=== PATIENT | male | born 1945 | race Caucasian/White ===

== ENCOUNTER → 2023-12-24 09:33 | Outpatient (REF) | payer MEDICARE, BC, SELFPAY | LOC: DHCBS MAIN 09:33 | PROVIDERS: ATTENDING PHYSICIAN Nuclear Medicine Nuclear Cardiology; FAMILY PHYSICIAN Family Medicine | DX: I48.0 Paroxysmal atrial fibrillation (principal); I34.0 Nonrheumatic mitral (valve) insufficiency; I25.10 Atherosclerotic heart disease of native coronary artery without angina pectoris | CPT/HCPCS: 93306 ==

== ENCOUNTER → 2024-01-25 07:22 | Outpatient (REF) | payer MEDICARE, BC, SELFPAY ==
[2024-01-25 08:07] LABS: Hematocrit 38.5 % (39.0-52.0); Hemoglobin 12.4 g/dL (13.0-18.0)
[2024-01-25 08:42] LABS: Protein/creatinine Ratio 0.1; Urine Protein 15 mg/dl
[2024-01-25 09:14] LABS: Albumin 3.8 g/dl (3.5-5.0); Blood Urea Nitrogen 27 mg/dl (9-20); Calcium 9.2 mg/dl (8.4-10.2); Carbon Dioxide 23 mmol/L (22-30); Chloride 110 mmol/L (98-107); Glucose 77 mg/dl (70-99); Phosphorus 4.3 mg/dl (2.5-4.5); Sodium 137 mmol/L (135-145); eGFR 37.82
[2024-01-25 09:26] LABS: Intact PTH 260.4 pg/ml (13.6-85.8)
== END ==
LOC: REG 07:22
PROVIDERS: ATTENDING PHYSICIAN Specialist
DX: N18.32 Chronic kidney disease, stage 3b (principal)
CPT/HCPCS: 36415; 80069; 82570; 83970; 84156; 85014; 85018

== ENCOUNTER 2024-03-13 21:15 | Inpatient (IN) | payer MEDICARE, BC, SELFPAY ==
[2024-03-13] VITALS (19 sets, daily range): BP systolic 145–197; BP diastolic 59–129; BMI 25.3; BMI 25.0
[2024-03-13 18:13] LABS: % Basophils 0.2 % (0-2); % Eosinophils 0.3 % (0-6); % Immature Granulocytes 0.4 % (0-0.5); % Lymphocytes 8.4 % (20.5-51.1); % Monocytes 7.5 % (1.7-9.3); % Neutrophils 83.2 % (42.2-75.2); Absolute Lymphocytes 0.9 10^3/uL (1.2-3.4); Absolute Monocytes 0.8 10^3/uL (0.1-0.6); Absolute Neutrophils 8.7 10^3/uL (1.4-6.5); Hematocrit 37.5 % (39.0-52.0); Hemoglobin 12.8 g/dL (13.0-18.0); Mean Corp Hgb Conc. 34.1 g/dL (33.0-37.0); Mean Corpuscular Volume 96.6 fL (80.0-94.0); Mean Platelet Volume 10.3 fL (7.4-10.4); Nucleated Red Blood Cells % 0 % (-); Platelet Count 210 10^3/uL (130-400); Red Blood Cell Count 3.88 10^6/uL (4.70-6.10); Red Cell Dist. Width 14.8 % (11.5-14.5); White Blood Cell Count 10.4 10^3/uL (4.8-10.8)
[2024-03-13 18:14] LABS: Glucose - Point of Care 30 mg/dl (70-99)
[2024-03-13] MEDS: DEXTROSE 50% SYRINGE 25 GRAMS IV ×2 (18:20→20:11)
--- NOTE | 2024-03-13 18:32 | ED.GENMED ---
History of Present Illness
General
Chief Complaint: Blood Sugar Problem
Source: patient, family and ambulance crew
Exam Limitations: none
Time Seen by Provider: 03/13/24 18:17
Nursing documentation reviewed up to this point in time: agreed with
Travel History
Have you had any contact with someone who has COVID-19?: No
Do you have any symptoms of coronavirus? Fever > 100 degrees, chills, cough, shortness of breath, sore throat, loss of taste or smell, muscle aches, or headache?: No
History of Present Illness
History of Present Illness:
78-year-old male presents emergency department due to low blood sugar. Blood sugar was in the 40s upon EMS arrival. EMS gave D10 en route, and blood sugar xochitl to 192. He has had low blood sugar in the past, that was thought to be secondary to
taking the wrong medication. He also has a mass on his pancreas. states he has not taken any of her medications.
Past History
Past History
ED Past Medical History: CAD and Other (Deaf Left ear)
ED Past Surgical History: Cardiac (Stents x 2) and Other (Ear tubes Bilaerally)
Social History
Tobacco: Non-smoker
Alcohol: Occasional
Personal:
Living: with family
Review of Systems
Review of Systems
Allergies reviewed?: Yes
All Other Systems: Not applicable
Constitutional: Reports fatigue
EENT: Reports no symptoms
Respiratory: Reports no symptoms
Cardiac: Reports syncope
ABD/GI: Reports no symptoms
: Reports no symptoms
Musculoskeletal: Reports no symptoms
Skin: Reports no symptoms
Neurological: Reports no symptoms
Endocrine: Reports no symptoms
Hematologic/Lymphatic: Reports no symptoms
Psychiatric: Reports no symptoms
Phy Exam
Physical Exam
Physical Exam:
Physical Exam
General: Fatigued, afebrile
Neck: supple. no meningeal signs. normal posterior pharynx
Heart: s1/s2 regular rate and rhythm, no murmur. equal radial
pulses.
HEENT: Pupils equal round reactive to light, EOMI
Lungs: no acute respiratory distress. clear bilaterally
Abdomen: normal bowel sounds. not tender. no CVAT
Neuro: alert and oriented. no focal neurological deficits cranial nerves II through XII intact
Skin: no rash
Psychiatric: well kept. interactive and cooperative
Extremities: no edema. no calf tenderness. negative homans. good distal pulses
Course
Orders/Labs/Results
Orders:
Orders
03/13/24 18:08
CBC/With Diff [Complete Blood Count/With Diff] Urgent
CMP [Comprehensive Metabolic Panel] Urgent
03/13/24 18:17
Dextrose 50%-Water [Dextrose 50% Syringe] 25 grams IV NOW STA
03/13/24 18:23
Dextrose 50%-Water [Dextrose 50% Syringe] 25 grams .ROUTE .STK-MED ONE
Abnormal Lab Results
03/13/24 03/13/24
18:08 18:13
RBC 3.88 L 10^6/uL
(4.70-6.10)
Hgb 12.8 L g/dL
(13.0-18.0)
Hct 37.5 L %
(39.0-52.0)
MCV 96.6 H fL
(80.0-94.0)
MCH 33.0 H pg
(27.0-31.0)
RDW 14.8 H %
(11.5-14.5)
Absolute Neuts (auto) 8.7 H 10^3/uL
(1.4-6.5)
Absolute Lymphs (auto) 0.9 L 10^3/uL
(1.2-3.4)
Absolute Monos (auto) 0.8 H 10^3/uL
(0.1-0.6)
Neutrophils % 83.2 H %
(42.2-75.2)
Lymphocytes % 8.4 L %
(20.5-51.1)
POC Glucose 30 L* mg/dl
(70-99)
03/13/24 18:08
Vital Signs
Initial and Last Documented VS:
Initial Vital Signs
Temp Pulse BP Pulse Ox
97.7 F 63 171/80 99
03/13/24 17:58 03/13/24 17:58 03/13/24 17:58 03/13/24 17:58
Last Documented Vital Signs
Temp Pulse BP Pulse Ox
97.7 F 63 197/87 98
03/13/24 17:58 03/13/24 17:58 03/13/24 18:15 03/13/24 18:15
MDM/Problems Addressed
Differential Diagnosis Includes:
Insulinoma, medication ingestion
MDM/Problems Addressed:
78-year-old male with hypoglycemia, unclear etiology. Recurrent. Will admit to hospitalist.
Chronic conditions affecting care: Kidney disease
Acute Exacerbation and/or Progression of Chronic Illness: Kidney disease
*Pulse Oximetry
Patient hypoxic: no
*EKG
Interpreted by ED Provider?: NA
*Porcelain Turner Interpretation
Rate: normal
Interpretation: normal
Heart Rate: 95
Rhythm: sinus
*Critical Care Note
Total Time (30-74mins, 75-104mins- exclusive of procedures): 30
comment:
Critical care statement: A total of 30 minutes of critical care time was provided for this patient. This includes management of unstable vital signs, evaluation of the patient at bedside, reviewing the patient's pertinent medical records, discussion
with consultants, review of old EKGs and review of pertinent medical records. This time with separate from time utilized to perform the aforementioned documented procedures
Data Reviewed
Review of Other/Old Records Reveals: Radiology Studies (Prior MRI shows simple cysts in right kidney, complex cyst left kidney, nonenhancing cyst in pancreas, 06/02/2023)
Source: records
Patient Management
Social determinants of health affecting care: Living situation
Discussion with other providers: Hospitalist
Escalation/DeEscalation of care consider admission/obs:
Admit indicated
ED Attending Note
-
Portions of this chart may have been created with voice recognition software.� Occasional wrong word or��sound alike� substitutions may have occurred due to the inherent limitations of voice recognition software.
Discharge Plan
Departure
Prescriptions:
No Action
allopurinol 100 mg tablet
150 mg PO DAILY
simvastatin 40 mg tablet
40 mg PO DAILY
colchicine 0.6 mg tablet
0.6 mg PO WESA
Eliquis 2.5 mg tablet
2.5 mg PO BID
sodium bicarbonate 650 mg tablet
1,300 mg PO BID Qty: 120 1RF
Interventions
Interventions:
*ED COVID-19 Vaccine History Last Done: 03/13/24 18:18
Discharge Date and Time
Print Language: IRISH
[2024-03-13 18:38] LABS: Glucose - Point of Care 184 mg/dl (70-99)
[2024-03-13 19:32] LABS: ALT (SGPT) 33 U/L (0-50); AST (SGOT) 38 U/L (17-59); Albumin 3.6 g/dl (3.5-5.0); Alkaline Phosphatase 94 U/L (38-126); Blood Urea Nitrogen 36 mg/dl (9-20); Calcium 9.1 mg/dl (8.4-10.2); Carbon Dioxide 17 mmol/L (22-30); Chloride 113 mmol/L (98-107); Estimated Creatinine Clearance 33 ml/min; Glucose < 30 mg/dl (70-99); Potassium 3.8 mmol/L (3.5-5.1); Sodium 139 mmol/L (135-145); Total Bilirubin 0.7 mg/dl (0.2-1.3); Total Protein 5.9 g/dl (6.3-8.2)
[2024-03-13 20:06] LABS: Glucose - Point of Care 53 mg/dl (70-99)
[2024-03-13] MEDS: D5/0.9% SODIUM CHLORIDE 1000 IV (20:21)
--- NOTE | 2024-03-13 20:31 | HPS.HSE ---
Family Physician
-
Family Physician: Edilson Salgado
Chief Complaint
-
low blood sugar
History of Present Illness
78 y/o M, hx of CAD, PAF on Eliquis, Gout, cognitive impairment, CKD 3b presents to ER with low blood sugar. Family noted patient to be more sleepy similar to episode in August and found blood sugar in 40s. EMS was called and they gave D10 in
route (response to 192). In ER, he arrived with blood sugar of 30 and given amp + food/juice/crackers with response to 184, then came down to 53. Additional 1 amp and IVF with dextrose started. Patient was more alert.
Patient is not on hypoglycemic meds.
and daughter at bedside. states she arranges their med bottles and she is insulin+sulfonylureas and reports she doesn't think meds were mixed up.
Patient has a pancreatic cyst which is scheduled for follow up imaging (MRI) in May.
Patient was admitted in August for similar, requiring IMU and D5/D10 drip. NO etiology was found and patient left AMA.
Medical History
Past Medical History
Past Medical History: Reports Other (CAD, PAF on Eliquis, Gout, cognitive impairment, CKD 3b)
Past Surgical History: Reports Other (Cardiac (Stents x 2) and Other (Ear tubes Bilaerally))
Social History
Tobacco: Non-smoker
Alcohol: Occasional
Personal:
Living: With Family
Family History
Family History: Not pertinent
Allergies / Home Medications
Allergies reflects when Allergies were last updated in [facility].
Home Medications with original date entered in [facility]
Allergy/Medication List:
Allergies
Allergy/AdvReac Type Severity Reaction Status Date / Time
No Known Allergies Allergy Verified 05/11/23 03:44
Home Medications
allopurinol 300 mg tablet 300 mg PO DAILY 03/13/24
apixaban 2.5 mg tablet (Eliquis) 2.5 mg PO BID 03/13/24
aspirin 81 mg tablet,delayed release 81 mg PO DAILY 03/13/24
carvedilol 25 mg tablet 25 mg PO BID 03/13/24
cetirizine 10 mg tablet (Zyrtec) 10 mg PO DAILY 03/13/24
cholecalciferol (vitamin D3) 125 mcg (5,000 unit) tablet 125 mcg PO DAILY 03/13/24
colchicine 0.6 mg tablet 0.6 mg PO WEFR@0800 03/13/24
cyanocobalamin (vitamin B-12) 1,000 mcg tablet 1,000 mcg PO DAILY 03/13/24
lisinopril 40 mg tablet 40 mg PO DAILY 03/13/24
simvastatin 40 mg tablet 40 mg PO HS 03/13/24
sodium bicarbonate 650 mg tablet 650 mg PO BID 03/13/24
zinc 50 mg tablet 50 mg PO DAILY 03/13/24
Review of Systems
-
A 12 point ROS was completed and negative except as noted: Yes
Physical Exam
Vital Signs
Vital Signs
Temp Pulse Resp BP Pulse Ox
97.7 F 60 10 148/59 98
03/13/24 17:58 03/13/24 20:15 03/13/24 20:15 03/13/24 20:15 03/13/24 20:15
Physical Exam
General: No Apparent Distress
HEENT: NormoCephalic and Anicteric
Respiratory: Clear; No Wheezes or Rales
Cardiac: S1/S2 and Regular Rhythm
Neuro: AO x 3
Hematologic/Lymphatic: No Lymphadenopathy
Psych: Calm
Laboratory Results
-
03/13/24 18:08
03/13/24 18:08
Laboratory Results
Total Bilirubin 0.7 mg/dl (0.2-1.3) 03/13/24 18:08
AST 38 U/L (17-59) 03/13/24 18:08
ALT 33 U/L (0-50) 03/13/24 18:08
Alkaline Phosphatase 94 U/L (38-126) 03/13/24 18:08
Data Reviewed
-
Lab Data: Labs Reviewed by me
Impression/Plan
-
Assessment:
Acute hypoglycemia, recurrent
- classic Whipple's triad of symptomatic, lab verified hypoglycemia in which symptoms resolves with increased glucose levels
- Etiology could be exogenous hypoglycemia agents (medication mix up with diabetic family member) vs adrenal insufficiency vs endogenous hyperinsulinemic states (malignancy, tumors) vs other (infection, other drugs, malnutrition states etc)
- Family reports patients appetite is excellent. He has not gone any weight loss surgeries. No reported infectious symptoms.
- they deny any mix up medications although I have asked Daughter to double check pill bottle counts and pill organizer.
- of note, CKD is contributing factor but not true etiology of hypoglycemia
- patients blood glucose 53 now - therefore ordered stat insulin, cortisol, C-peptide, IGF, B-HB obtained within 5 mins to improve accuracy. Up-to-date recommends proinsulin level and sulfonylurea screen but these labs are not available.
- known pancreatic lesion on MRI 05/2023: 6 mm nonenhancing cyst in the body of the pancreas. This likely represents a simple cyst, dilated side branch or IPMN
- repeat MRI Abdomen here to evaluate for any progression. Family does reports some transient weight loss.
- Admit IMU. Continue D5 fluids; low threshold for D10 fluids if patient remains hypoglycemia. Q1h glucose checks ordered. Keep dextrose at the bedside.
CAD
PAF on Eliquis
Essential HTN
HLD
- continue ASA/Eliquis
- continue Coreg/NERI
- continue statin
Gout
- continue Allopurinol and Colchicine
hx of cognitive impairment
CKD 3b
Chronic metabolic acidosis
- continue sodium bicarbonate
- scheduled to see Nephrology in May.
DVT ppx: Eliquis
Code: Full
[2024-03-13 20:57] LABS: B-Hydroxybutyrate 0.05 mmol/L (0.02-0.27)
[2024-03-13 21:38] LABS: Glucose - Point of Care 58 mg/dl (70-99)
[2024-03-13 22:27] LABS: Cortisol, Random 23.4 ug/dl
[2024-03-13 22:43] LABS: Glucose - Point of Care 50 mg/dl (70-99)
[2024-03-13 22:58] LABS: Glucose - Point of Care 50 mg/dl (70-99)
[2024-03-13] MEDS: DEXTROSE 50% SYRINGE 12.5 GRAMS IV (23:04)
[2024-03-13 23:13] LABS: Glucose - Point of Care 41 mg/dl (70-99)
[2024-03-13] MEDS: D10W 1000 IV (23:14)
[2024-03-13] MEDS: SODIUM BICARBONATE 650 MG PO (23:21)
[2024-03-13] MEDS: LIPITOR 20 MG PO (23:21)
[2024-03-13 23:27] LABS: Glucose - Point of Care 102 mg/dl (70-99)
[2024-03-14] VITALS (15 sets, daily range): BP systolic 104–179; BP diastolic 60–85; PULSE 68–72; BMI 25.1
[2024-03-14] MEDS: DEXTROSE 50% SYRINGE 12.5 GRAMS IV ×2 (00:21→01:50)
[2024-03-14 00:29] LABS: Glucose - Point of Care 55 mg/dl (70-99)
[2024-03-14 00:53] LABS: Glucose - Point of Care 80 mg/dl (70-99)
[2024-03-14 01:54] LABS: Glucose - Point of Care 48 mg/dl (70-99)
[2024-03-14 02:22] LABS: Glucose - Point of Care 115 mg/dl (70-99)
[2024-03-14] MEDS: DEXTROSE 50% SYRINGE 25 GRAMS IV ×4 (03:19→17:18)
[2024-03-14 03:24] LABS: Glucose - Point of Care 40 mg/dl (70-99)
[2024-03-14 03:46] LABS: Glucose - Point of Care 115 mg/dl (70-99)
[2024-03-14] MEDS: GlucaGen 1 MG IM (04:35)
[2024-03-14 04:40] LABS: Glucose - Point of Care 45 mg/dl (70-99)
[2024-03-14 05:09] LABS: Glucose - Point of Care 69 mg/dl (70-99)
[2024-03-14 05:22] LABS: Hematocrit 35.2 % (39.0-52.0); Mean Corp Hgb Conc. 34.1 g/dL (33.0-37.0); Mean Corpuscular Hgb 33.7 pg (27.0-31.0); Mean Corpuscular Volume 98.9 fL (80.0-94.0); Platelet Count 183 10^3/uL (130-400); Red Blood Cell Count 3.56 10^6/uL (4.70-6.10); Red Cell Dist. Width 14.6 % (11.5-14.5); White Blood Cell Count 10.9 10^3/uL (4.8-10.8)
[2024-03-14 05:34] LABS: Glucose - Point of Care 158 mg/dl (70-99)
[2024-03-14 05:35] LABS: Blood Urea Nitrogen 31 mg/dl (9-20); Calcium 8.8 mg/dl (8.4-10.2); Carbon Dioxide 17 mmol/L (22-30); Chloride 111 mmol/L (98-107); Estimated Creatinine Clearance 37 ml/min; Glucose 41 mg/dl (70-99); Potassium 4.4 mmol/L (3.5-5.1); Sodium 135 mmol/L (135-145); eGFR 47.06
[2024-03-14 06:03] LABS: Cortisol, Random 11.1 ug/dl
--- NOTE | 2024-03-14 06:06 | W.PN.HOSP.TC ---
Addendum entered and electronically signed by Alpesh Taylor MD 03/14/24 17:32:
Became hypoglycemic again later in day 40s. D10W increased back to 125 cc/h. FS recently reduced to ACHS increased to Q2H
Original Note:
Today's Communication/Plan
-
cont IVF dextrose eventual reduce rate as hypoglycemia persistently improves/resolves
increased bicarb supplementation
Reduce FS from Q1h to ACHS
Eliquis increased to 5 mg BID
Follow up MRI
Assessment / Plan
Assessment / Plan
Physical Exam
General: No Apparent Distress
HEENT: NormoCephalic and Anicteric
Respiratory: Clear; No Wheezes or Rales
Cardiac: S1/S2 and Regular Rhythm
Abd: soft bowel sounds present nontender
Neuro: AO x 3
Psych: Calm
HPI: 78M hx of CAD, PAF on Eliquis, Gout, cognitive impairment, CKD 3b presents to ER with low blood sugar. Family noted patient to be more sleepy similar to episode in August and found blood sugar in 40s. Admitted to IMU on Dextrose IVF
requiring frequent prn glucagon dextrose IVP's first 24 hours, gradually improved.
Acute hypoglycemia, recurrent
- Etiology could be exogenous hypoglycemia agents (medication mix up with diabetic family member) vs adrenal insufficiency (less likely cortisol non-deficient) vs endogenous hyperinsulinemic states (malignancy, tumors) vs other (infection, other
drugs, malnutrition states etc)
- Family reports patients appetite is excellent. Denies weight loss surgeries. No obvious signs of infection afebrile mild leukocytosis 10.9 non-significant
- CKD likely contributing however primary etiology remains unclear
- pending insulin, C-peptide, IGF.
- B-HB wnl
- known pancreatic lesion on MRI 05/2023: 6 mm nonenhancing cyst in the body of the pancreas. This likely represents a simple cyst, dilated side branch or IPMN
- repeat MRI Abd for possible progression pending. Family does reports some transient weight loss.
-IMU admit. Continue D10 fluid, prn dextrose, prn glucagon
-03/14 sugars improving, consistently euglycemic, freq FS reduced to ACHS from Q hourly
CAD
PAF on Eliquis
Essential HTN
HLD
- continue ASA/Eliquis (home 2.5 mg BID increased to 5 mg given age and weight- does not need renal dosing at this time, possible switch back to renal dosing upcoming 79th birthday in May if Cr>=1.5 or Wt <=60kg)
- continue Coreg/NERI
- continue statin
Gout
- continue Allopurinol and Colchicine
hx of cognitive impairment
CKD 3b
Chronic metabolic acidosis
- continue sodium bicarbonate increased to TID
- scheduled to see Nephrology in May.
PT/OT appreciated Home Health services
DVT ppx: Eliquis
Code: Full
Discussed with patient at bedside. called to provide update, no answer received, message left with call back number.
I spent a total of 50 minutes with the patient or on the floor. More than 50% of this time involved counseling and coordination of care.
Anticipated Discharge: 24 - 48 hours
Subjective/Interval History
-
Date of Service: March 14, 2024
Seen and examined at bedside in no acute distress resting comfortably in bed. Reports overall feeling well. Denies new acute issues including lightheadedness dizziness.
Objective Data
-
Labs:
Laboratory Results
03/13/24 03/14/24
18:08 04:58
WBC 10.4 Pending
Hgb 12.8 L Pending
Hct 37.5 L Pending
Plt Count 210 Pending
Sodium 139 135
Potassium 3.8 4.4
Chloride 113 H 111 H
Carbon Dioxide 17 L 17 L
BUN 36 H 31 H
Creatinine 1.7 H 1.5 H
Glucose < 30 L* 41 L*
Calcium 9.1 8.8
Total Bilirubin 0.7
AST 38
ALT 33
Alkaline Phosphatase 94
Vital Signs:
Vital Signs
Temp Pulse Resp BP Pulse Ox
97.9 F 62 18 139/79 98
03/14/24 04:00 03/14/24 05:00 03/14/24 05:00 03/14/24 04:00 03/14/24 05:00
I&O
03/12/24 03/13/24 03/14/24
06:59 06:59 06:59
Output Total 525 / 525
Balance -525 / -525
--- NOTE | 2024-03-14 06:16 | PTCARENOTE ---
Pt maintained on Q1 Accu checks throughout the night. Pt currently receiving D10 @125 ml/hr. Please refer to hypoglycemic intervention documentation for recall of all hourly interventions done in response to low sugars. pt remains asymptomatic, does
c/o tiredness, AAO.
[2024-03-14] MEDS: D10W 1000 IV ×2 (06:28→14:48)
[2024-03-14 06:33] LABS: Glucose - Point of Care 81 mg/dl (70-99)
[2024-03-14] MEDS: ZESTRIL 40 MG PO (07:37)
[2024-03-14] MEDS: COREG 25 MG PO ×2 (07:37→20:01)
[2024-03-14] MEDS: ZYLOPRIM 300 MG PO (07:37)
[2024-03-14] MEDS: ELIQUIS 2.5 MG PO (07:44)
[2024-03-14] MEDS: VITAMIN B-12 1000 MCG PO (07:44)
[2024-03-14] MEDS: ASPIR LOW (ENTERIC COATED) 81 MG PO (07:44)
[2024-03-14] MEDS: SODIUM BICARBONATE 650 MG PO ×3 (07:45→21:18)
[2024-03-14] MEDS: ZYRTEC 10 MG PO (07:45)
[2024-03-14] MEDS: VITAMIN D3 (cholecalciferol) 125 MCG PO (07:45)
[2024-03-14 07:46] LABS: Glucose - Point of Care 47 mg/dl (70-99)
[2024-03-14 08:02] LABS: Glucose - Point of Care 96 mg/dl (70-99)
[2024-03-14 08:19] LABS: Urine Albumin Negative (Neg - Trace); Urine Bilirubin Negative (Negative); Urine Character Clear (Clear); Urine Color Straw; Urine Glucose Negative (Negative); Urine Ketone Negative (Negative); Urine Leukocyte Negative (Negative); Urine Nitrite Negative (Negative); Urine Occult Blood Negative (Negative); Urine Specific Gravity 1.005 (<1.030); Urine Urobilinogen Negative (Neg - 1+)
[2024-03-14 09:05] LABS: Glucose - Point of Care 96 mg/dl (70-99)
[2024-03-14 09:41] LABS: Glycohemoglobin (HgbA1c) 5.1 % (4.0-5.6)
[2024-03-14] MEDS: D10W IV (10:16)
[2024-03-14 10:17] LABS: Glucose - Point of Care 116 mg/dl (70-99)
[2024-03-14 11:17] LABS: Glucose - Point of Care 84 mg/dl (70-99)
[2024-03-14 12:34] LABS: Glucose - Point of Care 76 mg/dl (70-99)
[2024-03-14 14:03] LABS: Glucose - Point of Care 83 mg/dl (70-99)
[2024-03-14 15:37] LABS: Glucose - Point of Care 83 mg/dl (70-99)
[2024-03-14 16:49] LABS: Glucose - Point of Care 70 mg/dl (70-99)
--- NOTE | 2024-03-14 16:56 | PTCARENOTE ---
Addendum entered by Moon Dozier RN 03/14/24 17:09:
MRI requires fasting x4 hours-- to be done in am set up tentatively for 9am.
Original Note:
AAOx3 pleasant appropriate- IVF D10 @125ml/hr infusing all day- Assisted with meal ordering, poor appetite but ate all of breakfast and lunch maintaining appropriate glucose levels- however currently 70 asymptomatic and assisted again with dinner
ordering.
IN/ Out of bed all day- did not sleep all night so dosed off a few times. SR on tele, BP 140/78. Chair alarm on for safety. and daughter visiting.
[2024-03-14 17:22] LABS: Glucose - Point of Care 40 mg/dl (70-99)
--- NOTE | 2024-03-14 18:02 | PTCARENOTE ---
Accu check read 70 and with in 1/2 hour noticed lethagic/ pale accu check retaken read 40- IV D50 1/2 am given per protocol- responded immediately- recheck was 93. Dinner here and eating, appetite poor. IVF maintained D10 at 125ml/hr. D/w
Dr. Taylor.
[2024-03-14 18:03] LABS: Glucose - Point of Care 93 mg/dl (70-99)
[2024-03-14] MEDS: ELIQUIS 5 MG PO (20:00)
[2024-03-14 20:06] LABS: Glucose - Point of Care 144 mg/dl (70-99)
--- NOTE | 2024-03-14 20:07 | PTCARENOTE ---
Care assumed of pt from day shift RN. Pt AAO, family at bedside visiting. Pt maintained at Q2hr accu checks. 19:50 check 144, D10 remains at 125 ml/hr. recheck at 21:50. no hypoglycemia additional intervention needed at this time. Pt remains lightly
flushed at the cheeks. no assessment changes. Pt took pm meds with water. NSR on monitor. OOB x 1 to the bathroom. voiding yellow moderate amount of urine. expresses no needs at this time. call parks in reach.
[2024-03-14] MEDS: LIPITOR 20 MG PO (21:18)
[2024-03-14 22:11] LABS: Glucose - Point of Care 166 mg/dl (70-99)
--- NOTE | 2024-03-14 22:50 | PTCARENOTE ---
Pt remains on D10@125 ml/hr, Q2 Accu checks maintained. Pm accu checks, 19:50 @ 144 and 22:00 @ 166. TONGUE LINING STITCHER notified of increase in sugars. Due to Pts recent fluctuation in sugars, benign hypoglycemia and inability to maintain normal sugars without
intervention. TONGUE LINING STITCHER instructed RN to continue with D10.
[2024-03-15] VITALS (15 sets, daily range): BP systolic 109–154; BP diastolic 48–82; PULSE 66; BMI 24.8
[2024-03-15 00:30] LABS: Glucose - Point of Care 179 mg/dl (70-99)
[2024-03-15] MEDS: D10W 1000 IV (00:33)
[2024-03-15 02:01] LABS: Glucose - Point of Care 176 mg/dl (70-99)
[2024-03-15 04:23] LABS: Glucose - Point of Care 187 mg/dl (70-99)
[2024-03-15 04:25] LABS: Hematocrit 34.8 % (39.0-52.0); Hemoglobin 11.8 g/dL (13.0-18.0); Mean Corp Hgb Conc. 33.9 g/dL (33.0-37.0); Mean Corpuscular Hgb 33.4 pg (27.0-31.0); Mean Corpuscular Volume 98.6 fL (80.0-94.0); Mean Platelet Volume 10.7 fL (7.4-10.4); Platelet Count 150 10^3/uL (130-400); Red Blood Cell Count 3.53 10^6/uL (4.70-6.10); Red Cell Dist. Width 14.8 % (11.5-14.5); White Blood Cell Count 7.4 10^3/uL (4.8-10.8)
[2024-03-15 05:12] LABS: Blood Urea Nitrogen 25 mg/dl (9-20); Calcium 8.9 mg/dl (8.4-10.2); Carbon Dioxide 18 mmol/L (22-30); Chloride 111 mmol/L (98-107); Estimated Creatinine Clearance 37 ml/min; Glucose 171 mg/dl (70-99); Magnesium 1.8 mg/dl (1.6-2.3); Phosphorus 3.2 mg/dl (2.5-4.5); Potassium 4.7 mmol/L (3.5-5.1); Sodium 133 mmol/L (135-145); eGFR 47.06
[2024-03-15 06:01] LABS: Glucose - Point of Care 211 mg/dl (70-99)
--- NOTE | 2024-03-15 07:54 | W.PN.HOSP.TC ---
Today's Communication/Plan
-
Stop IVF dextrose, repeat FS in 1 hr off fluids, if remains euglycemic decrease frequency FS to ACHS, if hypoglycemic resume IVF dextrose and cont with FS Q3H
PT/OT
discharge planning home with home services
Fingerstick monitoring education and device to be provided
Assessment / Plan
Assessment / Plan
Physical Exam
General: No Apparent Distress
HEENT: NormoCephalic and Anicteric hard of hearing
Respiratory: Clear; No Wheezes or Rales
Cardiac: S1/S2 and Regular Rhythm
Abd: soft bowel sounds present nontender
Neuro: AO x 3
Psych: Calm
HPI: 78M hx of CAD, PAF on Eliquis, Gout, cognitive impairment, CKD 3b presents to ER with low blood sugar. Family noted patient to be more sleepy similar to episode in August and found blood sugar in 40s. Admitted to IMU on Dextrose IVF
requiring frequent prn glucagon dextrose IVP's first 24 hours, gradually improved.
Acute hypoglycemia, recurrent
- Etiology could be exogenous hypoglycemia agents (medication mix up with diabetic family member) vs adrenal insufficiency (less likely cortisol non-deficient) vs endogenous hyperinsulinemic states (malignancy, tumors) vs other (infection, other
drugs, malnutrition states etc)
- Family reports patients appetite is excellent. Denies weight loss surgeries. No obvious signs of infection afebrile mild leukocytosis 10.9 non-significant
- CKD likely contributing however primary etiology remains unclear
- pending insulin, C-peptide, IGF.
- B-HB wnl
- known pancreatic lesion on MRI 05/2023: 6 mm nonenhancing cyst in the body of the pancreas. This likely represents a simple cyst, dilated side branch or IPMN
- MR abd appreciated stable findings left renal complex cyst slightly increased from prior and stable pancreatic cystic lesion 2 yr follow up MRI/MRCP w/ contrast in 2 years recommended
-IMU admit.
-prn dextrose, prn glucagon
-sugars improving, consistently euglycemic, occasional mild hyperglycemia noted, D10 tapered to D5WNS
-eventual discontinuation IVF dextrose with repeat FS 1h following discontinuation. If remains euglycemic off IV dextrose will extend FS to ACHS. If now, will resume IVF dextrose and cont w/ FS Q3H
-though not diabetic, diabetes education consulted for fingerstick monitor education and device
-outpatient followup with Endocrinology recommended
CAD
PAF on Eliquis
Essential HTN
HLD
- continue ASA/Eliquis (home 2.5 mg BID increased to 5 mg given age and weight- does not need renal dosing at this time, possible switch back to renal dosing upcoming 79th birthday in May if Cr>=1.5 or Wt <=60kg)
- continue Coreg/NERI
- continue statin
Gout
- continue Allopurinol and Colchicine
hx of cognitive impairment
CKD 3b
Chronic metabolic acidosis
- continue sodium bicarbonate increased to TID
- scheduled to see Nephrology in May.
PT/OT appreciated Home Health services
DVT ppx: Eliquis
Code: Full
Discussed with patient and patient's Tracie hartman
I spent a total of 50 minutes with the patient or on the floor. More than 50% of this time involved counseling and coordination of care.
Anticipated Discharge: 24 - 48 hours
Subjective/Interval History
-
Date of Service: March 15, 2024
no acute distress reports overall feeling well. Denies new acute issues at this time.
Objective Data
-
Labs:
Laboratory Results
03/15/24
04:17
WBC 7.4
Hgb 11.8 L
Hct 34.8 L
Plt Count 150
Sodium 133 L
Potassium 4.7
Chloride 111 H
Carbon Dioxide 18 L
BUN 25 H
Creatinine 1.5 H
Glucose 171 H
Calcium 8.9
Vital Signs:
Vital Signs
Temp Pulse Resp BP Pulse Ox
98.2 F 59 14 126/70 98
03/15/24 03:41 03/15/24 04:00 03/15/24 04:00 03/15/24 04:00 03/15/24 00:40
I&O
03/14/24 03/15/24 03/16/24
06:59 06:59 06:59
Intake Total 2480 / 2480
Output Total 525 / 525 1450 / 1450
Balance -525 / -525 1030 / 1030
[2024-03-15 08:41] LABS: Glucose - Point of Care 158 mg/dl (70-99)
[2024-03-15] MEDS: D5/0.9% SODIUM CHLORIDE 1000 IV (08:48)
--- NOTE | 2024-03-15 09:26 | CM ---
Patient with Dx Acute hypoglycemia, recurrent. Room air. Receiving IVF. PT recommends home PT vs no needs. OT; no needs.
Spoke with patient's Tracie yesterday;
shares that patient is difficult to converse with as he is very [place] despite hearing aides.
The patient and just returned home from a cruise on Sun 03/12.
The patient resides with his in a 1 story house with 4 EDD, in a [place].
The patient has been independent in ADLs and ambulation.
reports he is sometimes wobbly on his feet, about '90% steady', and has not had any falls.
The patient has no DME other than the hearing aides.
No prior VN or SNF.
PCP - Edilson Salgado
Pharmacy - [facility]
Referral to Kathy RUFF.
Plan home with [facility].
[2024-03-15] MEDS: COLCHICINE 0.599999999999999978 MG PO (10:06)
[2024-03-15] MEDS: SODIUM BICARBONATE 650 MG PO ×3 (10:07→21:01)
[2024-03-15] MEDS: ELIQUIS 5 MG PO ×2 (10:07→20:27)
[2024-03-15] MEDS: ASPIR LOW (ENTERIC COATED) 81 MG PO (10:07)
[2024-03-15] MEDS: ZESTRIL 40 MG PO (10:07)
[2024-03-15] MEDS: ZYRTEC 10 MG PO (10:07)
[2024-03-15] MEDS: ZYLOPRIM 300 MG PO (10:07)
[2024-03-15] MEDS: VITAMIN B-12 1000 MCG PO (10:07)
[2024-03-15] MEDS: COREG 25 MG PO ×2 (10:07→20:25)
[2024-03-15] MEDS: VITAMIN D3 (cholecalciferol) 125 MCG PO (10:07)
[2024-03-15 10:15] LABS: Glucose - Point of Care 110 mg/dl (70-99)
[2024-03-15 12:16] LABS: Glucose - Point of Care 239 mg/dl (70-99)
--- NOTE | 2024-03-15 12:32 | PTCARENOTE ---
NPO for MRI this am, D10 infusing - labs noted d/w IVF changed. PO diet here on return from MRI, IVF infusing as ordered, am meds given.
[2024-03-15 15:18] LABS: Glucose - Point of Care 183 mg/dl (70-99)
[2024-03-15 17:49] LABS: Glucose - Point of Care 137 mg/dl (70-99)
[2024-03-15 18:00] LABS: Insulin, Random 190 uIU/mL
[2024-03-15 18:02] LABS: C-Peptide 25.8 ng/mL (0.5-3.3)
--- NOTE | 2024-03-15 19:18 | PTCARENOTE ---
IVF turned off x 1 hour accu check performed 137. Accu checks changed to AC and HS. Snack ordered for bedtime.
--- NOTE | 2024-03-15 20:51 | PTCARENOTE ---
Care of Pt assumed from previous shift RN. Pt's 17:30 accu check was 137. Per MD nursing to place order, will recheck accu checks ACHS. Pt NSR on monitor. AAO, and agreeable to care. Call light in reach.
[2024-03-15] MEDS: LIPITOR 20 MG PO (21:01)
[2024-03-15 21:51] LABS: Glucose - Point of Care 116 mg/dl (70-99)
[2024-03-16] VITALS (13 sets, daily range): BP systolic 101–145; BP diastolic 56–84; PULSE 85–87; BMI 24.7
[2024-03-16 01:25] LABS: IGF-1 Z Score Calculation 1.4; Insulin-like Growth Factor I 183 ng/mL (19-189)
[2024-03-16 05:14] LABS: Hematocrit 34.2 % (39.0-52.0); Hemoglobin 11.7 g/dL (13.0-18.0); Mean Corp Hgb Conc. 34.2 g/dL (33.0-37.0); Mean Corpuscular Hgb 33.5 pg (27.0-31.0); Mean Platelet Volume 10.6 fL (7.4-10.4); Platelet Count 162 10^3/uL (130-400); Red Blood Cell Count 3.49 10^6/uL (4.70-6.10); Red Cell Dist. Width 15.1 % (11.5-14.5); White Blood Cell Count 7.9 10^3/uL (4.8-10.8)
[2024-03-16 05:32] LABS: Blood Urea Nitrogen 26 mg/dl (9-20); Calcium 9.1 mg/dl (8.4-10.2); Carbon Dioxide 18 mmol/L (22-30); Chloride 113 mmol/L (98-107); Estimated Creatinine Clearance 37 ml/min; Glucose 96 mg/dl (70-99); Magnesium 1.9 mg/dl (1.6-2.3); Phosphorus 3.3 mg/dl (2.5-4.5); Potassium 4.8 mmol/L (3.5-5.1); Sodium 136 mmol/L (135-145); eGFR 47.06
[2024-03-16 08:26] LABS: Glucose - Point of Care 83 mg/dl (70-99)
--- NOTE | 2024-03-16 08:56 | W.PN.HOSP.TC ---
Today's Communication/Plan
-
downgrade to F
FS monitoring ACHS
FS monitoring education and device to be provided
Endocrine eval requested
Assessment / Plan
Assessment / Plan
Physical Exam
General: No Apparent Distress
HEENT: NormoCephalic and Anicteric hard of hearing
Respiratory: Clear; No Wheezes or Rales
Cardiac: S1/S2 and Regular Rhythm
Abd: soft bowel sounds present nontender
Neuro: AO x 3
Psych: Calm
HPI: 78M hx of CAD, PAF on Eliquis, Gout, cognitive impairment, CKD 3b presents to ER with low blood sugar. Family noted patient to be more sleepy similar to episode in August and found blood sugar in 40s. Admitted to IMU on Dextrose IVF
requiring frequent prn glucagon dextrose IVP's first 24 hours, gradually improved.
Acute hypoglycemia, recurrent
- Etiology could be exogenous hypoglycemia agents (medication mix up with diabetic family member) vs adrenal insufficiency (less likely cortisol non-deficient) vs endogenous hyperinsulinemic states (malignancy, tumors) vs other (infection, other
drugs, malnutrition states etc)
- Family reports patients appetite is excellent. Denies weight loss surgeries. No obvious signs of infection afebrile mild leukocytosis 10.9 non-significant
- CKD likely contributing however primary etiology remains unclear
- B-HB wnl
- known pancreatic lesion on MRI 05/2023: 6 mm nonenhancing cyst in the body of the pancreas. This likely represents a simple cyst, dilated side branch or IPMN
- MR abd appreciated stable findings left renal complex cyst slightly increased from prior and stable pancreatic cystic lesion 2 yr follow up MRI/MRCP w/ contrast in 2 years recommended
-IMU admit downgraded to F
-prn dextrose, prn glucagon
-tapered off IV dextrose, sugars appear consistently stable on FS ACHS
-though not diabetic, diabetes education consulted for fingerstick monitor education and device
-Insulin like IGF appreciated wnl, C-peptid high with insulin lvl 190 question possible endogenous insulin production causing patient's hypoglycemia, Endocrine eval requested
CAD
PAF on Eliquis
Essential HTN
HLD
- continue ASA/Eliquis (home 2.5 mg BID increased to 5 mg given age and weight- does not need renal dosing at this time, possible switch back to renal dosing upcoming 79th birthday in May if Cr>=1.5 or Wt <=60kg)
- continue Coreg/NERI
- continue statin
Gout
- continue Allopurinol and Colchicine
hx of cognitive impairment
CKD 3b
Chronic metabolic acidosis
- continue sodium bicarbonate increased to TID
- scheduled to see Nephrology in May.
PT/OT appreciated Home Health services
DVT ppx: Eliquis
Code: Full
Stable for downgrade to [facility]
I spent a total of 50 minutes with the patient or on the floor. More than 50% of this time involved counseling and coordination of care.
Anticipated Discharge: Within 24 hours
Subjective/Interval History
-
Date of Service: March 16, 2024
Seen and examined at bedside in no acute distress sitting up comfortably in chair. Reports feeling well. Denies any new acute issues at this time.
Objective Data
-
Labs:
Laboratory Results
03/16/24
04:56
WBC 7.9
Hgb 11.7 L
Hct 34.2 L
Plt Count 162
Sodium 136
Potassium 4.8
Chloride 113 H
Carbon Dioxide 18 L
BUN 26 H
Creatinine 1.5 H
Glucose 96
Calcium 9.1
Vital Signs:
Vital Signs
Temp Pulse Resp BP Pulse Ox
97.5 F 58 11 127/71 98
03/16/24 03:42 03/16/24 04:00 03/16/24 04:00 03/16/24 04:00 03/15/24 00:40
I&O
03/15/24 03/16/24 03/17/24
06:59 06:59 06:59
Intake Total 2480 / 2480 1740 / 1740
Output Total 1450 / 1450
Balance 1030 / 1030 1740 / 1740
[2024-03-16] MEDS: ASPIR LOW (ENTERIC COATED) 81 MG PO (09:06)
[2024-03-16] MEDS: SODIUM BICARBONATE 650 MG PO ×3 (09:06→21:54)
[2024-03-16] MEDS: ZYLOPRIM 300 MG PO (09:06)
[2024-03-16] MEDS: ZESTRIL 40 MG PO (09:07)
[2024-03-16] MEDS: VITAMIN B-12 1000 MCG PO (09:07)
[2024-03-16] MEDS: ELIQUIS 5 MG PO ×2 (09:07→19:50)
[2024-03-16] MEDS: COREG 25 MG PO ×2 (09:07→19:50)
[2024-03-16] MEDS: ZYRTEC 10 MG PO (09:07)
[2024-03-16] MEDS: VITAMIN D3 (cholecalciferol) 125 MCG PO (09:07)
--- NOTE | 2024-03-16 11:13 | PTCARENOTE ---
Assumed care of patient at beginning of this shift. Patient worked with PT; ambulated in [place] and did steps. Tolerated breakfast; currently sitting up in chair. Patient has been using call parks appropriately but chair and chair alarm in use for
patient safety. See worklist for full assessment and vital signs; see MAR for med administration.
--- NOTE | 2024-03-16 11:47 | PTCARENOTE ---
Diabetes Education- Met with Mr. Mancuso for glucometer instructions as he has been experiencing hypoglycemia. Discussed the symptoms and treatment of hypoglycemia, he states he is asymptomatic. Provided with and instructions given on the [employer]
EZ glucometer. He did require verbal cues for the return demonstration. Result 130 mg/dl. States his and daughter can help him at home. I will follow up tomorrow. Updates to REGINO Gamino.
[2024-03-16 11:49] LABS: Glucose - Point of Care 119 mg/dl (70-99)
--- NOTE | 2024-03-16 15:45 | PTCARENOTE ---
Patient transferred to [facility]; report given to Kishor.
[2024-03-16 16:32] LABS: Glucose - Point of Care 102 mg/dl (70-99)
[2024-03-16] MEDS: LIPITOR 20 MG PO (19:50)
[2024-03-16 21:10] LABS: Glucose - Point of Care 120 mg/dl (70-99)
[2024-03-17 07:15] VITALS: BP 141/75
[2024-03-17 07:15] LABS: Glucose - Point of Care 88 mg/dl (70-99)
--- NOTE | 2024-03-17 07:18 | W.PN.HOSP.TC ---
Addendum entered and electronically signed by Alpesh Taylor MD 03/18/24 07:21:
Likely CKD3 baseline Cr 1.5-1.8 possible mild SARAH on CKD 3, outpatient follow up recommended
Original Note:
Today's Communication/Plan
-
discharge
Assessment / Plan
Assessment / Plan
Physical Exam
General: No Apparent Distress
HEENT: NormoCephalic and Anicteric hard of hearing
Respiratory: Clear; No Wheezes or Rales
Cardiac: S1/S2 and Regular Rhythm
Abd: soft bowel sounds present nontender
Neuro: AO x 3
Psych: Calm
HPI: 78M hx of CAD, PAF on Eliquis, Gout, cognitive impairment, CKD 3b presents to ER with low blood sugar. Family noted patient to be more sleepy similar to episode in August and found blood sugar in 40s. Admitted to IMU on Dextrose IVF
requiring frequent prn glucagon dextrose IVP's first 24 hours, gradually improved.
Acute hypoglycemia, recurrent
- Etiology could be exogenous hypoglycemia agents (medication mix up with diabetic family member) vs adrenal insufficiency (less likely cortisol non-deficient) vs endogenous hyperinsulinemic states (malignancy, tumors) vs other (infection, other
drugs, malnutrition states etc)
- Family reports patients appetite is excellent. Denies weight loss surgeries. No obvious signs of infection afebrile mild leukocytosis 10.9 non-significant
- CKD likely contributing however primary etiology remains unclear
- B-HB wnl
- known pancreatic lesion on MRI 05/2023: 6 mm nonenhancing cyst in the body of the pancreas. This likely represents a simple cyst, dilated side branch or IPMN
- MR abd appreciated stable findings left renal complex cyst slightly increased from prior and stable pancreatic cystic lesion 2 yr follow up MRI/MRCP w/ contrast in 2 years recommended
-IMU admit downgraded to GMF
-prn dextrose, prn glucagon
-tapered off IV dextrose, sugars consistently stable on FS ACHS >24 h off IV dextrose no prn dextrose or glucagon administration necessary since 03/14
-Insulin like IGF appreciated wnl, C-peptid high with insulin lvl 190 question possible endogenous insulin production causing patient's hypoglycemia, discussed with Endocrine who recommends outpatient follow up.
-Will prescribe glucose monitor on discharge. who is diabetic able to assist patient with continuing sugar monitoring at home.
CAD
PAF on Eliquis
Essential HTN
HLD
- continue ASA/Eliquis (home 2.5 mg BID increased to 5 mg given age and weight- does not need renal dosing at this time, possible switch back to renal dosing upcoming 79th birthday in May if Cr>=1.5 or Wt <=60kg)
- continue Coreg/NERI
- continue statin
Gout
- continue Allopurinol and Colchicine
hx of cognitive impairment
CKD 3b
Chronic metabolic acidosis
- continue sodium bicarbonate increased to TID acidosis since resolved ok to resume home BID dosing
- scheduled to see Nephrology in May.
PT/OT appreciated Home Health services
DVT ppx: Eliquis
Code: Full
Medically stable for discharge home with home services and outpatient follow up recommendations
Total Time Preparing Discharge ___50____ minutes including examination of the patient, summary of the hospital stay, instructions for continuing care to all relevant caregivers; and preparation of discharge records, prescriptions, and referral
forms if necessary.
Anticipated Discharge: Today
Subjective/Interval History
-
Date of Service: March 17, 2024
Seen and examined at bedside in no acute distress reports feeling well. Denies new acute issues at this time. Eager to go home.
Objective Data
-
Labs:
Laboratory Results
03/17/24
06:25
WBC Pending
Hgb Pending
Hct Pending
Plt Count Pending
Sodium Pending
Potassium Pending
Chloride Pending
Carbon Dioxide Pending
BUN Pending
Creatinine Pending
Glucose Pending
Calcium Pending
Vital Signs:
Vital Signs
Temp Pulse Resp BP Pulse Ox
99.2 F 88 18 137/84 98
03/16/24 23:27 03/16/24 23:27 03/16/24 23:27 03/16/24 23:27 03/16/24 23:27
I&O
03/16/24 03/17/24 03/18/24
06:59 06:59 06:59
Intake Total 1740 / 1740
Output Total 550 / 550
Balance 1740 / 1740 -550 / -550
[2024-03-17 07:19] LABS: Hematocrit 33.6 % (39.0-52.0); Hemoglobin 11.4 g/dL (13.0-18.0); Mean Corp Hgb Conc. 33.9 g/dL (33.0-37.0); Mean Corpuscular Hgb 33.2 pg (27.0-31.0); Mean Platelet Volume 11.2 fL (7.4-10.4); Platelet Count 175 10^3/uL (130-400); Red Blood Cell Count 3.43 10^6/uL (4.70-6.10); Red Cell Dist. Width 15.1 % (11.5-14.5); White Blood Cell Count 7.3 10^3/uL (4.8-10.8)
[2024-03-17 07:55] LABS: Blood Urea Nitrogen 31 mg/dl (9-20); Carbon Dioxide 22 mmol/L (22-30); Chloride 110 mmol/L (98-107); Estimated Creatinine Clearance 31 ml/min; Glucose 83 mg/dl (70-99); Magnesium 1.9 mg/dl (1.6-2.3); Phosphorus 3.6 mg/dl (2.5-4.5); Potassium 4.7 mmol/L (3.5-5.1); Sodium 138 mmol/L (135-145); eGFR 37.82
[2024-03-17] MEDS: ASPIR LOW (ENTERIC COATED) 81 MG PO (08:13)
[2024-03-17] MEDS: COLCHICINE 0.599999999999999978 MG PO (08:13)
[2024-03-17] MEDS: ZYLOPRIM 300 MG PO (08:13)
[2024-03-17] MEDS: SODIUM BICARBONATE 650 MG PO (08:13)
[2024-03-17] MEDS: ZYRTEC 10 MG PO (08:14)
[2024-03-17] MEDS: VITAMIN D3 (cholecalciferol) 125 MCG PO (08:14)
[2024-03-17] MEDS: ZESTRIL 40 MG PO (08:14)
[2024-03-17] MEDS: ELIQUIS 5 MG PO (08:14)
[2024-03-17] MEDS: VITAMIN B-12 1000 MCG PO (08:14)
[2024-03-17] MEDS: COREG 25 MG PO (08:14)
--- NOTE | 2024-03-17 09:00 | PTCARENOTE ---
Diabetes Education- Follow up with Timur, he feels comfortable with the glucose meter, reviewed treatment of hypoglycemia and he is able to repeat back information.
--- NOTE | 2024-03-17 09:13 | VNURNOTE ---
Home Health Liaison met with patient at 1200 03/16 to discuss [facility] nurse/therapy, visits, schedule and homebound status. Patient is agreeable and understands that visits at home will be 2-3 x per week to assess and teach medical management. Call to
patient's Tracie to discuss above and she is in agreement.
[facility] brochure provided with contact information. Patient is aware that [facility] will contact them for start of care in 1-2 days after discharge from .
[facility] referral completed in [facility].
[2024-03-17 11:10] LABS: Glucose - Point of Care 113 mg/dl (70-99)
--- NOTE | 2024-03-17 12:22 | PTCARENOTE ---
Removed peripheral IV. Patient has glucometer at bedside and has had teaching on how to check blood sugar levels. Patient denies questions at this time. Accu checks today prior to meals were 88 and 113. Awaiting discharge to home today with visiting
nurse support.
--- NOTE | 2024-03-17 12:56 | PN.CDI ---
CDI
- -
CDI:
Physician Documentation Request
Admit Date: 03/13/24 21:15
Dear Doctor Claudia,
Patient admitted with recurrent hypoglycemia.
Noted to have history of CKD 3 b.
recent creatinine resulted as follows:
Laboratory Tests
03/16/24 03/17/24
04:56 06:25
Creatinine 1.5 H 1.8 H
Please clarify which of the following accurately represents the patient's renal status:
____ - Acute kidney injury on CKD 3b
____ - CKD3 b only
____ - Other
Criteria for SARAH*
1 Increase in serum creatinine by > or = to 0.3 mg/dL (> or = to 26.5 micromol/L) within 48 hours, OR
2 Increase in serum creatinine to > or = to 1.5 times baseline, which is known or presumed to have occurred within 7 days, OR
3 Urine volume < 0.5 nL/kg/hour for six hours
Use of terms such as suspected, likely, concern for, or probable (associated with a specific diagnosis that is being evaluated, monitored, or treated as if it exists) are acceptable and can be coded in the inpatient setting, when documented at the
time of discharge.
Thank you,
Rupali Croft RN, BSN
CDI Specialist
tiger text
Please use your independent medical judgment in providing your response.
*Source: Kidney Disease: Improving Global Outcomes (KDIGO) 2012
--- NOTE | 2024-03-17 13:44 | W.DCSUMMARY ---
Discharge Summary
Discharge Data
Date of Admission: 03/13/24
Date of Discharge: 03/17/24
-
Pending Results: No
Discharge Plan
-
Patient Disposition: Home with Home Care
Discharge Diagnosis/Procedures: Acute hypoglycemia, recurrent unclear etiology possibly due to increased Endogenous Insulin Production
Left Renal Complex Cyst
Pancreatic Cystic Lesion
Coronary Artery Disease
Paroxysmal atrial fibrillation on Eliquis
Hypertension
Hyperlipidemia
Gout
Chronic Kidney disease Stage 3
Chronic metabolic acidosis
Condition: Fair
Diet: Regular
Activity: As tolerated
Driving Restrictions: Not until seen by your Dr
Bathing Restrictions: None
Blood Work: Please repeat CBC and BMP with primary care provider in 1 week of discharge.
Others Tests: MRI/MRCP with contrast in 2 years of discharge with primary care provider to continue following Pancreatic cystic lesion and Left renal complex cyst
Activity Restrictions/Additional Instructions:
Please follow up with primary care provider in 1 week of discharge and Endocrinology in 1-2 weeks of discharge.
A fingerstick monitoring device has been prescribed to your pharmacy. Check your sugar 3 times a day before meals and once before bedtime. Keep a log of your sugar values to present to your primary care provider and [facility] for further
evaluation/treatment.
Eliquis has been increased to 5 mg twice a day for better stroke risk reduction atrial fibrillation. Follow up with your primary care provider 1-2 weeks prior to your 79th birthday as you may require reduction in Eliquis back to 2.5 mg twice a day
if your Creatine level remains elevated at 1.5 or higher. You may also require reduction in dose if your weight falls to 60 kg or less. Follow up with your primary care provider before considering reducing dose.
Please take medications as prescribed/recommended and follow up with primary care provider and/or other healthcare provider involved in your care for refills and/or further adjustment to your medication regimen as necessary.
Instructions: Low blood sugar in people without diabetes
Referrals:
Kylie Reyna MD [Consulting Staff] - in one to two weeks
Edilson Salgado, [Family Provider] - in one week
Prescriptions:
New
Eliquis 5 mg Tablet
5 mg PO BID 30 Days Qty: 60 0RF
(DME) blood-glucose meter [Accu-Chek Guide Glucose Meter] Misc
Qty: 1 0RF
Rx Instructions:
As Directed
(DME) Accu-Chek Guide test strips Strip
Qty: 200 0RF
Rx Instructions:
As Directed
(DME) lancets [Accu-Chek Softclix Lancets] Misc
Qty: 200 0RF
Rx Instructions:
As Directed
Continued
carvedilol 25 mg Tablet
25 mg PO BID
cetirizine [Zyrtec] 10 mg Tablet
10 mg PO DAILY
cyanocobalamin (vitamin B-12) 1,000 mcg Tablet
1,000 mcg PO DAILY
aspirin 81 mg Tablet,Delayed Release (Dr/Ec)
81 mg PO DAILY
simvastatin 40 mg Tablet
40 mg PO HS
sodium bicarbonate 650 mg Tablet
650 mg PO BID
allopurinol 300 mg Tablet
300 mg PO DAILY
colchicine 0.6 mg Tablet
0.6 mg PO WEFR@0800
lisinopril 40 mg Tablet
40 mg PO DAILY
cholecalciferol (vitamin D3) 125 mcg (5,000 unit) Tablet
125 mcg PO DAILY
zinc 50 mg Tablet
50 mg PO DAILY
Discontinued
Eliquis 2.5 mg Tablet
2.5 mg PO BID
Discharge Orders:
Discharge Patient (As Directed); Ordered 03/17/24
Ordered By: Alpesh Taylor
Discharge Date and Time
Print Language: ROMANIAN
[2024-03-17 14:00] VITALS: BP 130/72
--- NOTE | 2024-03-17 14:29 | CM ---
MD entered order for discharge.
Spoke with pt in room . He said he was ready for discharge.
IMM given signed on chart.
Daughter Maryjo will drive him home
PLAN Home with [facility] who accepted pt.
== END 2024-03-17 14:19 | disposition home health service (06) | DRG 641 ==
LOC: 4 EAST ACU 21:15
PROVIDERS: ADMITTING PHYSICIAN Internal Medicine; ATTENDING PHYSICIAN Internal Medicine; EMERGENCY PHYSICIAN Emergency Medicine; FAMILY PHYSICIAN Family Medicine
DX: E16.2 Hypoglycemia, unspecified (principal); K86.2 Cyst of pancreas; E87.22 Chronic metabolic acidosis; N17.9 Acute kidney failure, unspecified; I25.10 Atherosclerotic heart disease of native coronary artery without angina pectoris; H91.92 Unspecified hearing loss, left ear; M10.9 Gout, unspecified; E78.5 Hyperlipidemia, unspecified; R41.89 Other symptoms and signs involving cognitive functions and awareness; I12.9 Hypertensive chronic kidney disease with stage 1 through stage 4 chronic kidney disease, or unspecified chronic kidney disease; N18.32 Chronic kidney disease, stage 3b; Z79.82 Long term (current) use of aspirin; Z95.5 Presence of coronary angioplasty implant and graft; Z79.01 Long term (current) use of anticoagulants
CPT/HCPCS: 74183; 80048; 80053; 81003; 82010; 82533; 82962; 83036; 83525; 83735; 84100; 84305; 84443; 84681; 85025; 85027; 87040; 87070; 96374; 96376; 97116; 97162; 97165; 97530; 97535; 99291; A9575; J1610

== ENCOUNTER → 2024-04-18 07:30 | Outpatient (REF) | payer MEDICARE, BC, SELFPAY ==
[2024-04-18 08:28] LABS: Ionized Calcium 1.28 mMOL/L (1.15-1.33)
[2024-04-18 08:49] LABS: NT-proBNP 808 pg/ml
[2024-04-18 08:59] LABS: ALT (SGPT) 49 U/L (0-50); AST (SGOT) 35 U/L (17-59); Albumin 3.6 g/dl (3.5-5.0); Alkaline Phosphatase 100 U/L (38-126); Blood Urea Nitrogen 38 mg/dl (9-20); Calcium 9.4 mg/dl (8.4-10.2); Carbon Dioxide 17 mmol/L (22-30); Chloride 115 mmol/L (98-107); Glucose 86 mg/dl (70-99); HDL Cholesterol 39 mg/dl; LDL Cholesterol, Calculated 44 mg/dl; Potassium 5.4 mmol/L (3.5-5.1); Sodium 140 mmol/L (135-145); Total Bilirubin 0.6 mg/dl (0.2-1.3); Total Cholesterol 96 mg/dl (50-199); Total Protein 5.6 g/dl (6.3-8.2); Triglyceride 65 mg/dl (10-149); Very Low Density Lipoprotein 13 mg/dl (0-30); eGFR 37.82
[2024-04-18 09:12] LABS: Microalbumin/creatinine Ratio 27.6 mg/g
[2024-04-18 09:15] LABS: Free T3 2.83 pg/ml (2.77-5.27); Vitamin D, 25-OH*** 51.6 ng/mL (30-80)
[2024-04-18 09:28] LABS: Cortisol, Random 13.6 ug/dl; PSA, Total - Diagnostic < 0.06 ng/ml (0.0-4.0); TSH 1.68 uIU/ml (0.47-4.68)
[2024-04-18 09:30] LABS: Glycohemoglobin (HgbA1c) 5.1 % (4.0-5.6)
[2024-04-19 13:56] LABS: Thyroid Peroxidase Ab (TPO) <0.3 IU/mL (0.0-9.0)
[2024-04-19 16:25] LABS: C-Peptide 1.7 ng/mL (0.5-3.3)
[2024-04-19 16:32] LABS: Insulin, Random 4 uIU/mL
[2024-04-19 21:35] LABS: % Free Testosterone 1.8 % (1.6-2.9); Free Testosterone 61 pg/mL (47-244); Sex Hormone Binding Globulin 35 nmol/L (19-76); Total Testosterone 346 ng/dL (300-720)
== END ==
LOC: REG 07:30
PROVIDERS: ATTENDING PHYSICIAN Internal Medicine Endocrinology, Diabetes & Metabolism; FAMILY PHYSICIAN Family Medicine
DX: E55.9 Vitamin D deficiency, unspecified (principal); E03.9 Hypothyroidism, unspecified; R97.20 Elevated prostate specific antigen [PSA]; R89.9 Unspecified abnormal finding in specimens from other organs, systems and tissues; E78.5 Hyperlipidemia, unspecified; I65.23 Occlusion and stenosis of bilateral carotid arteries; R79.89 Other specified abnormal findings of blood chemistry; R73.03 Prediabetes; R79.82 Elevated C-reactive protein (CRP); R53.83 Other fatigue; E27.8 Other specified disorders of adrenal gland
CPT/HCPCS: 36415; 80053; 80061; 82043; 82306; 82330; 82533; 82570; 83036; 83525; 83880; 84153; 84270; 84402; 84403; 84439; 84443; 84481; 84681; 86376

== ENCOUNTER → 2024-07-10 07:57 | Outpatient (REF) | payer MEDICARE, BC, SELFPAY ==
[2024-07-10 08:33] LABS: % Basophils 0.8 % (0-2); % Eosinophils 2.3 % (0-6); % Immature Granulocytes 0.3 % (0-0.5); % Monocytes 11.8 % (1.7-9.3); % Neutrophils 63.8 % (42.2-75.2); Absolute Basophils 0.1 10^3/uL (0-0.2); Absolute Eosinophils 0.2 10^3/uL (0-0.7); Absolute Lymphocytes 1.4 10^3/uL (1.2-3.4); Absolute Monocytes 0.8 10^3/uL (0.1-0.6); Absolute Neutrophils 4.2 10^3/uL (1.4-6.5); Hematocrit 35.3 % (39.0-52.0); Hemoglobin 12.1 g/dL (13.0-18.0); Mean Corp Hgb Conc. 34.3 g/dL (33.0-37.0); Mean Corpuscular Hgb 34.6 pg (27.0-31.0); Mean Corpuscular Volume 100.9 fL (80.0-94.0); Mean Platelet Volume 10.5 fL (7.4-10.4); Nucleated Red Blood Cells % 0 % (-); Platelet Count 171 10^3/uL (130-400); Red Cell Dist. Width 14.3 % (11.5-14.5); White Blood Cell Count 6.5 10^3/uL (4.8-10.8)
[2024-07-10 09:28] LABS: ALT (SGPT) 54 U/L (0-50); AST (SGOT) 42 U/L (17-59); Albumin 2.3 g/dl (3.5-5.0); Alkaline Phosphatase 103 U/L (38-126); Blood Urea Nitrogen 26 mg/dl (9-20); Carbon Dioxide 21 mmol/L (22-30); Chloride 110 mmol/L (98-107); Glucose 84 mg/dl (70-99); Potassium 4.7 mmol/L (3.5-5.1); Sodium 141 mmol/L (135-145); Total Bilirubin 0.7 mg/dl (0.2-1.3); Total Protein 5.3 g/dl (6.3-8.2); Uric Acid 2.8 mg/dl (3.5-8.5); eGFR 46.77
== END ==
LOC: REG 07:57
PROVIDERS: ATTENDING PHYSICIAN Student in an Organized Health Care Education/Training Program; FAMILY PHYSICIAN Family Medicine
DX: N18.30 Chronic kidney disease, stage 3 unspecified (principal)
CPT/HCPCS: 36415; 80053; 84550; 85025

== ENCOUNTER → 2024-11-11 07:14 | Outpatient (REF) | payer MEDICARE, BC, SELFPAY ==
[2024-11-11 09:08] LABS: ALT (SGPT) 96 U/L (0-50); AST (SGOT) 66 U/L (17-59); Albumin 3.7 g/dl (3.5-5.0); Alkaline Phosphatase 123 U/L (38-126); Blood Urea Nitrogen 38 mg/dl (9-20); Calcium 9.3 mg/dl (8.4-10.2); Carbon Dioxide 23 mmol/L (22-30); Chloride 113 mmol/L (98-107); Glucose 83 mg/dl (70-99); Potassium 5.4 mmol/L (3.5-5.1); Sodium 142 mmol/L (135-145); Total Bilirubin 0.5 mg/dl (0.2-1.3); Total Protein 5.9 g/dl (6.3-8.2); Uric Acid 3.7 mg/dl (3.5-8.5); eGFR 40.25
== END ==
LOC: REG 07:14
PROVIDERS: ATTENDING PHYSICIAN Student in an Organized Health Care Education/Training Program
DX: M1A.3620 Chronic gout due to renal impairment, left knee, without tophus (tophi) (principal)
CPT/HCPCS: 36415; 80053; 84550

== ENCOUNTER → 2025-03-13 07:14 | Outpatient (REF) | payer MEDICARE, BC, SELFPAY ==
[2025-03-13 08:40] LABS: ALT (SGPT) 61 U/L (0-50); AST (SGOT) 43 U/L (17-59); Albumin 3.7 g/dl (3.5-5.0); Alkaline Phosphatase 91 U/L (38-126); Blood Urea Nitrogen 34 mg/dl (9-20); Calcium 9.3 mg/dl (8.4-10.2); Carbon Dioxide 21 mmol/L (22-30); Chloride 115 mmol/L (98-107); Glucose 87 mg/dl (70-99); Potassium 4.9 mmol/L (3.5-5.1); Sodium 142 mmol/L (135-145); Total Bilirubin 0.6 mg/dl (0.2-1.3); Total Protein 5.7 g/dl (6.3-8.2); eGFR 37.58
[2025-03-13 10:51] LABS: Uric Acid 3.9 mg/dl (3.5-8.5)
== END ==
LOC: REG 07:14
PROVIDERS: ATTENDING PHYSICIAN Student in an Organized Health Care Education/Training Program; FAMILY PHYSICIAN Family Medicine
DX: M10.069 Idiopathic gout, unspecified knee (principal)
CPT/HCPCS: 36415; 80053; 84550

== ENCOUNTER → 2025-05-11 08:41 | Outpatient (REF) | payer MEDICARE, BC, SELFPAY ==
[2025-05-11 13:12] LABS: HDL Cholesterol 33 mg/dl; LDL Cholesterol, Calculated 42 mg/dl; Very Low Density Lipoprotein 17 mg/dl (0-30)
== END ==
LOC: REG 08:41
PROVIDERS: ATTENDING PHYSICIAN Nuclear Medicine Nuclear Cardiology; FAMILY PHYSICIAN Family Medicine
DX: E78.5 Hyperlipidemia, unspecified (principal)
CPT/HCPCS: 36415; 80061

== ENCOUNTER → 2025-08-21 08:01 | Outpatient (REF) | payer MEDICARE, BC, SELFPAY ==
[2025-08-21 09:34] LABS: ALT (SGPT) 72 U/L (0-50); AST (SGOT) 55 U/L (17-59); Albumin 3.6 g/dl (3.5-5.0); Alkaline Phosphatase 112 U/L (38-126); Blood Urea Nitrogen 28 mg/dl (9-20); Calcium 9.6 mg/dl (8.4-10.2); Carbon Dioxide 25 mmol/L (22-30); Chloride 110 mmol/L (98-107); Glucose 84 mg/dl (70-99); Potassium 5.1 mmol/L (3.5-5.1); Sodium 138 mmol/L (135-145); Total Protein 5.4 g/dl (6.3-8.2); eGFR 50.49
== END ==
LOC: REG 08:01
PROVIDERS: ATTENDING PHYSICIAN Specialist; FAMILY PHYSICIAN Family Medicine
DX: E88.09 Other disorders of plasma-protein metabolism, not elsewhere classified (principal)
CPT/HCPCS: 36415; 80053; 82570; 83970; 84156

== ENCOUNTER → 2025-09-15 08:54 | Outpatient (REF) | payer MEDICARE, BC, SELFPAY ==
[2025-09-15 11:00] LABS: HDL Cholesterol 43 mg/dl; LDL Cholesterol, Calculated 37 mg/dl; Very Low Density Lipoprotein 15 mg/dl (0-30)
== END ==
LOC: REG 08:54
PROVIDERS: ATTENDING PHYSICIAN Nuclear Medicine Nuclear Cardiology; FAMILY PHYSICIAN Family Medicine
DX: E78.5 Hyperlipidemia, unspecified (principal)
CPT/HCPCS: 36415; 80061